=== PATIENT | male | born 1970 | race Caucasian/White ===

== ENCOUNTER 2018-02-21 16:16 | Emergency (ER) | payer SELFPAY ==
[~2018-02-21] VITALS: Ht 190.5 cm; Wt 80.0 kg
[~2018-02-21 16:16] MED LIST: AMOXICILLIN500 MG PO; NAPROSYN500 MG PO; PERCOCET 5/325M1 TAB OR; PHENERGAN25 MG/TAB PO; ULTRAM50 M1 PO; ULTRAM50 MG PO
[2018-02-21] MEDS ORDERED: KEFLEX500 MG PO (16:45)
[2018-02-21 16:48] VITALS: BP 116/71
== END 2018-02-21 17:04 | disposition home or self-care (01) | DRG 914 ==
LOC: ED 16:16
DX: S61.247A Puncture wound with foreign body of left little finger without damage to nail, initial encounter (principal); W45.8XXA Other foreign body or object entering through skin, initial encounter; Y93.89 Activity, other specified; Y92.814 Boat as the place of occurrence of the external cause

== ENCOUNTER 2022-03-31 10:53 | Emergency (ER) | payer SELFPAY ==
[~2022-03-31] VITALS: Ht 190.5 cm; Wt 90.0 kg
[~2022-03-31 10:53] MED LIST changes: +KEFLEX500 MG PO
[2022-03-31 11:01] VITALS: BP 133/78
[2022-03-31 11:02] VITALS: BP 133/78
[2022-03-31] MEDS ORDERED: AMOX/K CLAV875 M1 PO (11:21)
== END 2022-03-31 19:55 | disposition home or self-care (01) | DRG 159 ==
LOC: ED 10:53
PROC: 0C953ZZ Drainage of Upper Gingiva, Percutaneous Approach (ICD-10-PCS; principal; 2022-03-31)
DX: K04.7 Periapical abscess without sinus (principal); S02.5XXA Fracture of tooth (traumatic), initial encounter for closed fracture; X58.XXXA Exposure to other specified factors, initial encounter; F17.210 Nicotine dependence, cigarettes, uncomplicated